=== PATIENT | male | born 1930 | race Caucasian/White ===

== ENCOUNTER 2019-02-19 13:13 | Day surgery (SDC) | payer OTHER ==
[~2019-02-19] VITALS: Ht 162.6 cm; Wt 81.8 kg
[~2019-02-19 13:13] MED LIST: ASPI-903 PO; ATOR10TA65 PO; DIVA-73 PO; DUTA0.5C PO; GLIM2TAB PO; HYDR12.58 PO; PENT400T9 PO; PYRI50CA PO; TAMS-14 PO; [UNRECOGNIZED DRUG - CODE]
[2019-02-19 14:11] VITALS: Ht 162.6 cm; Wt 81.8 kg
[2019-02-19 14:47] VITALS: BP 128/69; PULSE 95; RESP 20
[2019-02-19] MEDS ORDERED: GLUCAGON 1 MG INJ ONE (16:05)
[2019-02-19] MEDS ORDERED: PROPOFOL 40 ML ONE (16:13)
[2019-02-19 16:56] VITALS: BP 140/65; RESP 15
== END 2019-02-19 17:38 | disposition home or self-care (01) ==
LOC: GIL 13:13
PROVIDERS: ATTEND Internal Medicine Gastroenterology
DX: D12.5 Benign neoplasm of sigmoid colon (principal); D12.3 Benign neoplasm of transverse colon; E11.9 Type 2 diabetes mellitus without complications; I10 Essential (primary) hypertension; Z79.82 Long term (current) use of aspirin
CPT/HCPCS: 82962; 88305; J1610